=== PATIENT | female | born 1995 | race Caucasian/White ===

== ENCOUNTER 2019-09-05 17:09 | Emergency (ER) | payer SELFPAY ==
[~2019-09-05] VITALS: Ht 165.1 cm; Wt 72.7 kg
[2019-09-05 17:25] VITALS: BP 131/88; TEMP 99
[2019-09-05 19:55] LABS: INR 0.9 (0.8-3.0)
[2019-09-05 19:57] LABS: BASO % 0.5 % (0.0-2.0); EOS # 0.1 (0.0-0.7); EOS % 1.2 % (0-4.0); GRAN # 3.8 (1.4-6.5); GRAN % 64.5 % (42.2-75.2); HEMATOCRIT 44.5 % (37.0-47.0); HEMOGLOBIN 14.4 g/dl (12.5-16.0); LYMPH # 1.5 (1.2-3.4); LYMPH % 25.9 % (20.0-51.0); MEAN CELL VOLUME 91 fl (80.0-100.0); MEAN CORPUSCULAR HEMOGLOBIN 29 pg (27.0-31.0); MEAN CORPUSCULAR HGB CONC 32 g/dl (33.0-37.0); MEAN PLATELET VOLUME 10.5 fl (7.4-10.4); MONO # 0.5 (0.1-0.6); MONO % 7.7 % (1.7-9.3); PARTIAL THROMBOPLASTIN TIME 26.1 SECONDS (26.0-37.0); PLATELET COUNT 165 K/mm3 (130-400); RED BLOOD COUNT 4.91 M/mm3 (4.10-5.30); REDCELL DISTRIBUTION WIDTH-CV 12.1 % (11.5-14.5)
[2019-09-05 19:59] LABS: ALBUMIN 4.7 gm/dL (3.5-5.0); BILIRUBIN,TOTAL 0.4 mg/dL (0.0-1.0); CALCIUM 9.7 mg/dL (8.4-10.2); CREATININE, serum 0.91 (0.52-1.25); TOTAL PROTEIN 8.4 gm/dL (6.4-8.2)
[2019-09-05] MEDS ORDERED: XARELTO STARTER20 MG PO (20:52)
[2019-09-05 21:25] VITALS: PULSE 81
[2019-09-06] MEDS ORDERED: ELIQUIS 5MG PO (11:36)
== END 2019-09-05 21:30 | disposition home or self-care (01) ==
LOC: COL.ER 17:09
PROVIDERS: Physician Assistant
DX: I82.402 Acute embolism and thrombosis of unspecified deep veins of left lower extremity (principal)

== ENCOUNTER → 2020-03-09 | Outpatient (CLI) | payer SELFPAY ==
[~2020-03-09] MED LIST: ELIQUIS 5MG PO; XARELTO STARTER20 MG PO
== END ==
LOC: ZCOL.LAB 14:09
DX: I82.412 Acute embolism and thrombosis of left femoral vein (principal)